=== PATIENT | male | born 1985 | race Asian ===

== ENCOUNTER 2018-04-21 18:24 | Emergency (ER) | payer BC ==
[~2018-04-21] VITALS: Ht 162.6 cm; Wt 72.6 kg
--- NOTE | 2018-04-21 18:39 | NUR ---
ED Nurse Note: Pt came in from home due to headache since today, 09/11 edy. Pt started to have runny nose and vomitted x1 today after working out at the gym. AOx4, VSS edy. Will cont to monitor.
[2018-04-21] MEDS ORDERED: Ketorolac 30mg Inj IV ONE (18:45)
[2018-04-21 18:50] VITALS: BP 128/73
[2018-04-21 19:11] LABS: HEMATOCRIT 46.9 % (42.0-52.0); HEMOGLOBIN 16.2 G/DL (14.2-18.0); MEAN CORPUSCULAR VOLUME 91 FL (80-99); PLATELET COUNT 249 K/UL (150-450); RED BLOOD COUNT 5.15 M/UL (4.70-6.10); RED CELL DISTRIBUTION WIDTH 11.3 % (11.6-14.8); WHITE BLOOD COUNT 12.8 K/UL (4.8-10.8)
--- NOTE | 2018-04-21 19:15 | NUR ---
HAND-OFF: Report given to FREDY Lafleur.
[2018-04-21 19:20] LABS: ANION GAP 11 mmol/L (5-15); BLOOD UREA NITROGEN 21 mg/dL (7-18); CALCIUM 9.1 MG/DL (8.5-10.1); CARBON DIOXIDE 25 MMOL/L (21-32); CHLORIDE 101 MMOL/L (98-107); POTASSIUM 3.6 MMOL/L (3.5-5.1); SODIUM 137 MMOL/L (136-145)
[2018-04-21 19:25] LABS: ALANINE AMINOTRANSFERASE 21 U/L (12-78); ALBUMIN 4.2 G/DL (3.4-5.0); ALBUMIN/GLOBULIN RATIO 1.1 (1.0-2.7); ALKALINE PHOSPHATASE 61 U/L (46-116); ASPARTATE AMINO TRANSFERASE 26 U/L (15-37); BILIRUBIN,TOTAL 0.5 MG/DL (0.2-1.0)
[2018-04-21] MEDS ORDERED: IBUPROFEN600 MG ORAL (19:48)
--- NOTE | 2018-04-21 20:00 | NUR ---
ED Nurse Note: Patient discharged in stable condition. patient IV removed, ID band removed. Patient ambulatory with steady gait, no s/s of acute distress. Patient verbalized understanding of discharge instructions and departed with all belongings.
[2018-04-21 20:02] VITALS: BP 128/73
--- NOTE | 2018-04-21 22:28 | Emergency Room Report ---
History of Present Illness General Chief Complaint: Headache Source: Patient Present Illness HPI The patient is a 33-year-old male presenting for headache. This began today for no apparent reason. He does admit that he has been exercising more than usual and not taking in as much fluids as he should. Pain is a 10 out of 10 dull ache and surrounds the head. No known provoking or relieving factors. He denies history of migraines. He denies other symptoms including nausea, vomiting, blurred vision, photophobia, neck pain or stiffness, SOB, CP, myalgia , cough Allergies: Coded Allergies: No Known Allergies (Unverified , 04/21/18) Patient History Past Medical History: see triage record Pertinent Family History: none Reviewed Nursing Documentation: PMH: Agreed; PSxH: Agreed Nursing Documentation-PMH Past Medical History: No History, Except For Hx Cardiac Problems: No - tb Review of Systems All Other Systems: negative except mentioned in HPI Physical Exam Vital Signs Date Time Temp Pulse Resp B/P (MAP) Pulse Ox O2 Delivery O2 Flow Rate FiO2 04/21/18 18:31 98.1 81 18 128/73 98 Room Air Sp02 EP Interpretation: reviewed, normal General Appearance: no apparent distress, alert, GCS 15, non-toxic Head: normocephalic, atraumatic Eyes: bilateral eye normal inspection, bilateral eye PERRL, bilateral eye EOMI Respiratory: chest non-tender, lungs clear, normal breath sounds, speaking full sentences Cardiovascular #1: regular rate, rhythm, no edema Musculoskeletal: back normal, gait/station normal, normal range of motion, non- tender Neurologic: alert, oriented x3, responsive, motor strength/tone normal, sensory intact, speech normal Psychiatric: judgement/insight normal, memory normal, mood/affect normal, no suicidal/homicidal ideation Skin: normal color, no rash, warm/dry, well hydrated Lymphatic: no adenopathy Medical Decision Making PA Attestation Dr. Julio is my supervising physician. Patient management was discussed with my supervising physician Diagnostic Impression: Primary Impression: Dehydration Additional Impression: Headache Qualified Codes: R51 - Headache ER Course The patient is a 33-year-old male presenting for headache. Differential diagnoses include but not limited to Migraine, tension headache, dehydration, among others PE: Afebrile. NAD Head is NC/AT Non tender PERRL. EOMI. No nystagmus Neck is soft and supple. No nuchal rigidity The patient is given IV fluids and Toradol and feels significantly better. He is told to rest at home and take in plenty of fluids. He is given strict ER precautions to return including if he develops fever, headache worsens or remains, or any other new symptoms. He has an appointment with primary doctor within 1 week. Laboratory Tests Test 04/21/18 19:00 White Blood Count 12.8 K/UL (4.8-10.8) H Red Blood Count 5.15 M/UL (4.70-6.10) Hemoglobin 16.2 G/DL (14.2-18.0) Hematocrit 46.9 % (42.0-52.0) Mean Corpuscular Volume 91 FL (80-99) Mean Corpuscular Hemoglobin 31.4 PG (27.0-31.0) H Mean Corpuscular Hemoglobin Concent 34.5 G/DL (32.0-36.0) Red Cell Distribution Width 11.3 % (11.6-14.8) L Platelet Count 249 K/UL (150-450) Mean Platelet Volume 5.9 FL (6.5-10.1) L Neutrophils (%) (Auto) % (45.0-75.0) Lymphocytes (%) (Auto) % (20.0-45.0) Monocytes (%) (Auto) % (1.0-10.0) Eosinophils (%) (Auto) % (0.0-3.0) Basophils (%) (Auto) % (0.0-2.0) Sodium Level 137 MMOL/L (136-145) Potassium Level 3.6 MMOL/L (3.5-5.1) Chloride Level 101 MMOL/L (98-107) Carbon Dioxide Level 25 MMOL/L (21-32) Anion Gap 11 mmol/L (5-15) Blood Urea Nitrogen 21 mg/dL (7-18) H Creatinine 1.0 MG/DL (0.55-1.30) Estimate Glomerular Filtration Rate > 60 mL/min (>60) Glucose Level 132 MG/DL (74-106) H Calcium Level 9.1 MG/DL (8.5-10.1) Total Bilirubin 0.5 MG/DL (0.2-1.0) Aspartate Amino Transferase (AST) 26 U/L (15-37) Alanine Aminotransferase (ALT) 21 U/L (12-78) Alkaline Phosphatase 61 U/L (46-116) Total Protein 7.9 G/DL (6.4-8.2) Albumin 4.2 G/DL (3.4-5.0) Globulin 3.7 g/dL Albumin/Globulin Ratio 1.1 (1.0-2.7) Lab Results Impression Labs show mild leukocytosis. Otherwise unremarkable Last Vital Signs Date Time Temp Pulse Resp B/P (MAP) Pulse Ox O2 Delivery O2 Flow Rate FiO2 04/21/18 20:02 98.1 80 18 128/73 98 Room Air Status: improved Disposition: HOME, SELF-CARE Condition: Improved Scripts Ibuprofen* (MOTRIN*) 600 Mg Tablet 600 MG ORAL Q8H PRN for For Pain, #30 TAB 0 Refills Prov: TREVOR [facility] 04/21/18 Referrals: [facility] (PCP) Patient Instructions: Tension Headache, Dehydration, Adult Additional Instructions: I discussed my findings with the patient. All questions and concerns have been answered. Treatment and medication compliance have been addressed. Return to ED if symptoms worsen, new symptoms arise, or if needed for any reason. Patient verbalized understanding of discharge instructions. Please keep your appointment with her primary doctor for this week as discussed. Return to the emergency department as soon as possible if headache continues, worsens, you developed fever, you developed neck stiffness or pain, or for any other symptoms that develop. TREVOR [facility] Apr 21, 2018 22:28
== END 2018-04-21 20:02 | disposition home or self-care (01) ==
LOC: EMR 18:49
DX: R51 Headache (principal); E86.0 Dehydration
CPT/HCPCS: 36415; 80053; 85025; 96361; 96374; 96375; 99284; J1885; J2405